=== PATIENT | male | born 1985 ===

== ENCOUNTER 2023-11-17 13:37 | Outpatient (REF) | payer SELFPAY ==
--- OUTSIDE RECORDS SUMMARY | 2023-11-17 13:44 | XMS_ITS | Continuity of Care Document ---
Author Organization [facility] Address [address] [place] [address] Care Team Providers Care [employer] Name Role Phone Outside, Provider Primary Care Physician Encounter [id number] Date(s): 10/30/23 - 10/30/[address] [facility] [address] [place] [address] us Discharge Disposition: Home or Self Care Attending Physician: Farzad Hudson PA-C Admitting Physician: Farzad Hudson PA-C Referring Physician: Farzad Hudson PA-C Patient Care team information Care Team Personnel Name: Outside, Provider Position: No Access Member Role: Primary Care Physician Insurance Providers Guarantor name: GARETT FUENTES Health Plan Information #: 2 Payer: SELF EMPLOYED Member Number: NA Policy Number: NA
[2023-11-17 19:16] LABS: Abs Immature Grans 0.02 10^3/uL (0.0-0.06); Absolute Basophil Count 0.04 10^3/uL (0.0-0.2); Absolute Lymphocyte Count 1.64 10^3/uL (1.2-3.4); Absolute Monocyte Count 0.43 10^3/uL (0.1-0.8); Absolute Neutrophil Count 4.47 10^3/uL (1.2-6.7); Basophils % 0.6 %; Eosinophils % 1.5 %; HCT 50.7 % (40.0-50.0); Immature Grans % 0.3 %; Lymphocytes % 24.5 %; MCH 29.6 pg (27.0-33.0); MCHC 33.5 % (32.0-36.0); MCV 88 fL (80-95); MPV 10.2 fL (8.0-11.0); Monocytes % 6.4 %; Neutrophils % 66.7 %; Platelet Count 294 10^3/uL (130-400); RBC 5.74 10^6/uL (4.36-5.78); RDW 12.8 % (11.8-14.1); RDW-SD 41.6 fL
[2023-11-17 19:49] LABS: ALT 97 U/L (16-63); AST 34 U/L (15-37); Albumin 4.3 g/dL (3.4-5.0); Alkaline Phosphatase 104 U/L (46-116); Amylase 46 U/L (25-115); Anion Gap 6.8 mmol/L (3-11); BUN 15 mg/dL (7-18); Bilirubin, Total 0.55 mg/dL (0.2-1.0); CO2 30.2 mmol/L (21.0-32.0); CREATININE 0.8 mg/dL (0.70-1.30); Chloride 100 mmol/L (98-107); Glucose 96 mg/dL (74-106); Lipase 38 U/L (16-77); Potassium 4.2 mmol/L (3.5-5.1); Sodium 137 mmol/L (136-145); Total Protein 9.1 g/dL (6.4-8.2)
[2023-11-17 20:05] LABS: Calcium 9.4 mg/dL (8.5-10.1)
[2023-11-19 22:25] LABS: Tissue Transglutaminase Ab IgG 4.6 U/mL
== END 2023-11-17 13:38 | disposition home or self-care (01) ==
LOC: NCHCN 13:37
PROVIDERS: Visit Provider Nurse Practitioner Family
DX: R10.9 Unspecified abdominal pain (principal)
CPT/HCPCS: 80053; 83690; 86364; 82150; 85025